=== PATIENT | female | born 1970 | race Caucasian/White ===

== ENCOUNTER 2022-03-21 20:21 | Emergency (ER) | payer SELFPAY ==
[~2022-03-21] VITALS: Wt 70.5 kg
[2022-03-21] MEDS ORDERED: AMOXICILLIN AND1 TA2 PO (21:09)
[2022-03-21 21:21] VITALS: BP 132/76
== END 2022-03-21 21:21 | disposition home or self-care (01) ==
LOC: ED 20:21
DX: H66.93 Otitis media, unspecified, bilateral (principal); R09.81 Nasal congestion; Z28.310 Unvaccinated for COVID-19